=== PATIENT | male | born 1945 | race Caucasian/White ===

== ENCOUNTER 2021-02-18 12:29 | Inpatient (IN) | payer MEDICARE, MEDICAID ==
[~2021-02-18] VITALS: Ht 182.9 cm; Wt 89.8 kg
[~2021-02-18 12:29] MED LIST: COREG 25MG TAB25 MG PO; ECOTRIN81 MG PO; HYDRALAZINE HCL50 MG PO; LASIX20 MG PO; PLETAL 100 MG100 MG PO; SYNTHROID125 MCG PO; ZITHROMAX250 MG PO
[2021-02-18 13:08] LABS: HEMOGLOBIN 13.5 gm/dl (14.0-17.5); RED BLOOD COUNT 4.31 M/UL (4.20-5.50); WHITE BLOOD COUNT 10.7 K/UL (4.5-11.0)
[2021-02-19 04:25] LABS: RED BLOOD COUNT 3.9 M/UL (4.20-5.50)
[2021-02-20] MEDS ORDERED: LIPITOR TAB 2020 MG PO (05:50)
[2021-02-20] MEDS ORDERED: HUMULIN N100 UNIT/1 SQ (06:16)
[2021-02-20 06:22] LABS: HEMOGLOBIN 12.7 gm/dl (14.0-17.5); RED BLOOD COUNT 4.12 M/UL (4.20-5.50)
[2021-02-20 06:26] LABS: WHITE BLOOD COUNT 10.4 K/UL (4.5-11.0)
[2021-02-20] MEDS ORDERED: HUMULIN R100 UNIT/1 INJ (17:11)
[2021-02-21 04:12] LABS: HEMOGLOBIN 12.8 gm/dl (14.0-17.5); RED BLOOD COUNT 4.11 M/UL (4.20-5.50); WHITE BLOOD COUNT 9.2 K/UL (4.5-11.0)
--- NOTE | 2021-02-21 13:30 | NUR ---
PATIENT NOTED TO BE HYPOTENSIVE WITH A PRESSURE OF 81/43. DR PARRA MADE AWARE WITH NEW ORDERS GIVEN.
--- NOTE | 2021-02-21 18:32 | NUR ---
PATIENT VITALS WNL MADE AWARE CANCLE TRANSFER TO PCU
== END 2021-02-22 18:42 | disposition home or self-care (01) | DRG 303 ==
LOC: ER1 12:29 → CDU 14:00 → M/S 14:00
PROVIDERS: Emergency Medicine; Internal Medicine Nephrology; Physician Assistant; ADMIT Internal Medicine
DX: I25.10 Atherosclerotic heart disease of native coronary artery without angina pectoris (principal); N17.9 Acute kidney failure, unspecified; Z20.822 Contact with and (suspected) exposure to COVID-19; I12.9 Hypertensive chronic kidney disease with stage 1 through stage 4 chronic kidney disease, or unspecified chronic kidney disease; R00.1 Bradycardia, unspecified; F17.210 Nicotine dependence, cigarettes, uncomplicated; I95.9 Hypotension, unspecified; E03.9 Hypothyroidism, unspecified; E11.22 Type 2 diabetes mellitus with diabetic chronic kidney disease; N18.30 Chronic kidney disease, stage 3 unspecified; N28.1 Cyst of kidney, acquired; E78.5 Hyperlipidemia, unspecified; Z85.850 Personal history of malignant neoplasm of thyroid; Z93.0 Tracheostomy status; Z95.5 Presence of coronary angioplasty implant and graft; Z79.82 Long term (current) use of aspirin; Z79.899 Other long term (current) drug therapy; I25.2 Old myocardial infarction; Z82.49 Family history of ischemic heart disease and other diseases of the circulatory system
CPT/HCPCS: ECHO; 36415; 71045; 78452; 80053; 80061; 82550; 82553; 82570; 82962; 83036; 83735; 83874; 84133; 84156; 84300; 84439; 84443; 84484; 85025; 85027; 85610; 85730; 89050; 93017; 93306; 99152; 99153; 99285; A9502; G0378; J1644; J2250; J2370; J2785; J3010; J7040; J7050; Q9965; Q9967; U0002

== ENCOUNTER 2021-10-19 16:28 | Emergency (ER) | payer MEDICARE ==
[~2021-10-19 16:28] MED LIST changes: +HUMULIN N100 UNIT/1 SQ; +HUMULIN R100 UNIT/1 INJ; +LIPITOR TAB 2020 MG PO
[2021-10-19 17:07] LABS: HEMOGLOBIN 11.7 gm/dl (14.0-17.5); RED BLOOD COUNT 3.77 M/UL (4.20-5.50); WHITE BLOOD COUNT 8.3 K/UL (4.5-11.0)
[2021-10-19] MEDS ORDERED: HYDROCODON-ACE1 EAC4 PO (19:12)
== END 2021-10-19 22:10 | disposition home or self-care (01) ==
LOC: ER1 16:28
PROVIDERS: Student in an Organized Health Care Education/Training Program
DX: S22.42XA Multiple fractures of ribs, left side, initial encounter for closed fracture (principal); I13.10 Hypertensive heart and chronic kidney disease without heart failure, with stage 1 through stage 4 chronic kidney disease, or unspecified chronic kidney disease; N18.9 Chronic kidney disease, unspecified; E11.22 Type 2 diabetes mellitus with diabetic chronic kidney disease; Z95.1 Presence of aortocoronary bypass graft; Z85.21 Personal history of malignant neoplasm of larynx; W22.8XXA Striking against or struck by other objects, initial encounter; Y92.009 Unspecified place in unspecified non-institutional (private) residence as the place of occurrence of the external cause
CPT/HCPCS: 71045; 71250; 80053; 85025; 99284